=== PATIENT | female | born 1995 | race Caucasian/White ===

== ENCOUNTER 2019-03-14 00:04 | Emergency (ER) | payer OTHER ==
[~2019-03-14] VITALS: Ht 172.7 cm; Wt 81.6 kg
--- NOTE | 2019-03-14 00:26 | NUR ---
Pt walks to ER with c/o intermittent chest pain x 3 weeks, but states had palpitations yesterday around 1600. No chest pain at this time. NSR on cardiac technologist. SA02 99% room air. Respirations even + unlabored. no acute distress noted.
--- NOTE | 2019-03-14 01:23 | NUR ---
Patient discharged to home in stable conditon. Written and verbal after care instructions given. Patient verbalizes understanding of instructions. Pt ambulated out of ER in stable gait with boyfriend. Denies any pain or shortness of breath at this time. All belongings with patient. Vital signs stable.
[2019-03-14 01:26] VITALS: BP 126/72
== END 2019-03-14 01:27 | disposition home or self-care (01) ==
LOC: ER 00:07
DX: R07.89 Other chest pain (principal); Z90.49 Acquired absence of other specified parts of digestive tract
CPT/HCPCS: 36415; 70030-TC; 93005; A4663